=== PATIENT | male | born 1955 | race Caucasian/White ===

== ENCOUNTER 2019-01-16 14:15 | Observation (INO) ==
[2019-01-16] MEDS ORDERED: METHYLPREDNISOLONE SOD SUCC/PF 125 MG/2 ML VIAL IV ONE (14:39)
[2019-01-16] MEDS ORDERED: ALBUTEROL SULFATE/IPRATROPIUM 3 ML NEBU IH ONE (14:39)
[2019-01-16 15:01] LABS: Hematocrit 47.9 % (42.0-52.0); Hemoglobin 16.5 gm/dL (13.5-18.0); Mean Cell Volume 93.2 fl (78-100); Mean Corpuscular Hemoglobin 32.1 pg (27-31); Mean Corpuscular Hgb Conc 34.4 g/dl (32-36); Mean Platelet Volume 10.1 fl (8-11.3); Neutrophil # 3.8 K/mm3 (1.3-6.0); Neutrophil % 76.7 % (42-75.0); Platelet Count 158 K/mm3 (150-450); Red Blood Count 5.14 M/mm3 (4.7-6.0); Red Cell Distribution Width 12.4 % (11.5-14.0); White Blood Count 4.9 K/mm3 (4.0-10.5)
[2019-01-16 15:16] LABS: ALT 40 U/L (19-67); AST 46 U/L (0-48); Alkaline Phosphatase * 81 U/L (50-170); Anion Gap 14.4 mmol/L (6.8-13.8); BNP * 72 pg/mL (5-175); BUN/Creatinine Ratio 9.3 (9.0-21.6); Bilirubin, Total 0.5 mg/dL (0.0-1.1); Blood Urea Nitrogen 12 mg/dL (6-23); Ca. Corrected For Albumin 9.2 mg/dL (8.4-10.2); Calcium * 9.5 mg/dL (7.9-10.9); Carbon Dioxide 26.5 mmol/L (24-32.6); Chloride 95 mmol/L (97-106); Glucose * 366 mg/dL (70-110); Potassium 3.9 mmol/L (3.4-4.6); Sodium 132 mmol/L (132-142); Troponin I Less than 0.017 ng/mL (0.00-0.10)
[2019-01-16] MEDS ORDERED: NORMAL SALINE 1,000 ML IV ONE (15:44)
[2019-01-16] MEDS ORDERED: METHYLPREDNISOLONE SOD SUCC/PF 125 MG/2 ML VIAL ONE (15:46)
--- NOTE | 2019-01-16 16:05 | ERNOTE ---
Date of Service: 01/16/19 Time Seen by Provider: 01/16/19 14:33 Stated Complaint: coughing Presenting Symptoms:: cough Source: patient Exam Limitations: no limitations Immunizations: IMMUNIZATION HX Immunizations Up to Date Yes History of Influenza Vaccine No Hx Pneumococcal Vaccination Yes Allergies/Adverse Reactions: Allergies Penicillins Allergy (Mild, Verified 01/16/19 18:43) hives bee stings Allergy (Intermediate, Uncoded 01/16/19 14:28) swelling/redness cockroach Allergy (Mild, Uncoded 01/16/19 14:28) cough/sneezes horse serum Allergy (Mild, Uncoded 01/16/19 14:28) unknown was kid Home Medications: HOME MEDICATIONS aspirin 81 mg tablet,delayed release 81 mg PO DAILY 05/15/18 [Last Taken Unknown] citalopram 20 mg tablet 20 mg PO DAILY #90 tab 07/05/18 [Last Taken Unknown] cyclobenzaprine 10 mg tablet 10 mg PO TID PRN #270 tab 07/21/18 [Last Taken Unknown] Docusate Sodium 100 mg PO TID 01/16/19 [Last Taken Unknown] Gabapentin 300 mg PO TID #90 cap 01/17/19 [Last Taken Unknown] Glimepiride [Amaryl] 4 mg PO BID #60 tab 01/17/19 [Last Taken Unknown] Losartan Potassium [Cozaar] 25 mg PO DAILY #30 tab 01/17/19 [Last Taken Unknown] Metoprolol Succinate 25 mg PO DAILY 30 Days tab.er.24h 01/17/19 [Last Taken Unknown] Oseltamivir Phosphate [Tamiflu] 75 mg PO BID #8 cap 01/17/19 [Last Taken Unknown] Ranitidine HCl [Heartburn Relief] 150 mg PO BID #180 tab 01/17/19 [Last Taken Unknown] Ranitidine HCl [Zantac] 150 mg PO BID #30 tab 01/17/19 [Last Taken Unknown] metFORMIN HCL [Metformin HCl ER] 1,000 mg PO BID #360 tab 01/17/19 [Last Taken Unknown] traZODone HCL [Trazodone HCl] 2 tab PO HS #60 tab 01/17/19 [Last Taken Unknown] levalbuterol HFA 45 mcg/actuation aerosol inhaler 1 inh INHALATION Q3H PRN #15 g 03/21/19 [Last Taken Unknown] - Pain Score Pain Score #1 Pain Score: 7 - History of Present Ilness Narrative: The patient is a 63 year old male who presents for dyspnea and cough which has been present for 3-4 days with worsening symptoms yesterday. There are associated symptoms of fatigue, headache and body aches. The patient reports body aches, 7/10. There are no alleviating factors. There are aggravating factors of activity. Previous treatments have included: Tylenol without improvement. The past medical history includes: arthritis, COPD, DM, HTN, depression, HLD, sleep apnea and GERD. The social history is positive for current tobacco use. The patient has had no known ill contacts. Timing: getting worse Review of Systems - Review of Systems Constitutional: Present: fever, chills, fatigue EYE: Present: no symptoms reported ENT: Present: nose congestion, nasal drainage, sore throat. Absent: ear pain Respiratory: Present: shortness of breath, cough, wheezing Cardiology: Present: no symptoms reported. Absent: chest pain Gastrointestinal/Abdominal: Present: nausea. Absent: vomiting, diarrhea, abdominal pain Genitourinary: Present: no symptoms reported. Absent: dysuria, decreased urinary output Musculoskeletal: Present: no symptoms reported. Absent: back pain Skin: Present: no symptoms reported. Absent: rash Neurological: Present: headache. Absent: dizziness/light-headedness, weakness Endocrine: Present: no symptoms reported Hematologic/Lymphatic: Present: no symptoms reported Psych: Present: no symptoms reported All Other Systems: All systems neg except as marked Medical History (Last Reviewed 01/20/19 @ 14:13 by JORGE Barrientos) Essential hypertension (Chronic) Onset Date: Unknown Erectile dysfunction (Chronic) Onset Date: 11/15/17 Depression (Chronic) Onset Date: Unknown Type II diabetes mellitus (Chronic) Onset Date: Unknown COPD (chronic obstructive pulmonary disease) (Chronic) Onset Date: ~11/15/17 Arthritis (Chronic) Onset Date: Unknown GERD (gastroesophageal reflux disease) Hyperlipidemia Onset Date: Unknown Insomnia Onset Date: 11/15/17 Peripheral neuropathy Onset Date: Unknown Sleep apnea Onset Date: Unknown Spinal stenosis Onset Date: Unknown Type II diabetes mellitus Surgical History: Surgical History (Last Reviewed 01/20/19 @ 14:13 by JORGE Barrientos) H/O thumb surgery Tendon on thumb right repair 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 Smoking Status Current every day smoker Alcohol Use occasionally Drug Use marijuana (Last Updated 08/29/18 @ 12:40 by Che Alas DO) No Social History Section defined Physical Exam - Physical Exam General Appearance: Present: wd/wn, alert, moderate distress Head Exam: Present: normal inspection Eye Exam: Normal inspection: bilateral, PERRL: bilateral Ears, Nose, Throat: Present: normal ENT inspection, pharyngeal erythema Neck: Present: normal inspection, nontender Respiratory: Present: chest nontender, accessory muscle use, decreased breath sounds, wheezing - diffuse expiratory Cardiovascular/Chest: Present: no murmur, tachycardia Gastrointestinal/Abdominal: Present: normal bowel sounds, nontender, nondistended, soft, no organomegaly Neurological Exam: Present: alert, oriented, normal mood/affect, no motor/sensory deficits Skin Exam: Present: normal color, warm/dry Progress - Date and Time Seen: Date and Time: 01/16/19 16:00 Discussed case with and accepted for admission due to COPD exacerbation as well as influenza A positive. - Results and Orders Patient's Lab Results:: I have reviewed the patient's lab results. - Vital Signs Patient's Vital Signs:: I have reviewed the patient's vital signs. Vital Signs: Vital Signs 01/16/19 14:24 01/16/19 15:04 01/16/19 15:43 Temperature 36.4 C Pulse Rate 127 H 129 H 128 H Respiratory Rate 22 H 32 H 25 H Blood Pressure 143/89 107/60 O2 Sat by Pulse Oximetry 94 91 L 93 01/16/19 15:52 Temperature Pulse Rate 126 H Respiratory Rate 28 H Blood Pressure O2 Sat by Pulse Oximetry - EKG EKG #1 EKG: NSR - tachycardia EKG read: Reviewed by me - X-Ray X-Ray #1 X-Ray: chest Interpretation: Reviewed by me X-ray Comments: X-RAY REPORT ~[id number] RAD/Chest PA & Lateral *~ Exam Date: 01/16/2019 14:37 Ordering Physician: Essence PATEL HISTORY: Chest Pain. Additional history from technologist: Chest pain, coughing, sick off/ on for a month, worsening last couple days. Positive for Influenza A. TECHNIQUE: PA and lateral views of the chest were obtained. 4 images. COMPARISONS: None Available FINDINGS: Chest PA Lateral * Hyperinflated lung volumes, with hyperlucent appearance of the lungs noted. There is slightly decreased left lung volume relative to the right. No consolidation or mass. No significant vascular congestion suggested. No pneumothorax or pleural fluid collections. Cardiac silhouette within normal limits. Mild tortuosity of the thoracic aorta noted, with overlying atherosclerotic vascular calcifications. There is focal prominence of the left hilum. Could be artifactual but possible perihilar lesion/mass or lymphadenopathy should be considered. Trachea is in normal position. Bones show degenerative changes of the spine. IMPRESSION: 1. Findings compatible with acute or chronic bronchitis versus reactive airways disease. Also consider COPD/emphysema, if the patient has history of smoking or other risk factors. 2. Questionable finding at the left hilum as discussed above, with associated slight left lung volume loss. Recommend follow-up by chest CT to rule out a potential perihilar lesion or lymphadenopathy, which can be performed on a nonemergent basis unless otherwise clinically indicated. Ordering provider JORGE Barrientos was informed regarding the above results by telephone on 01/16/2019 3:50 PM. Electronically signed by Justin Monroe M.D.. - Progress/Reassessment Chief Complaint: Cough Departure Clinical Impression: Influenza A, COPD with exacerbation - Departure Disposition: Still a patient Condition: Stable
[2019-01-16] MEDS ORDERED: AZITHROMYCIN 250 MG TABLET PO ONE (16:06)
[2019-01-16] MEDS ORDERED: OSELTAMIVIR PHOSPHATE 75 MG CAPSULE PO ONE (16:06)
[2019-01-16] MEDS ORDERED: cefTRIAXone SODIUM 1,000 MG/100 ML BAG IV ONE (16:06)
[2019-01-16] MEDS ORDERED: ACETAMINOPHEN 500 MG TABLET PO ONE (16:21)
[2019-01-16] MEDS: NORMAL SALINE 1,000 ML IV PRN ×2 (17:20→18:27)
--- NOTE | 2019-01-16 17:44 | HP ---
Chief Complaint - Chief Complaint Date of Service: 01/16/19 Time of Service: 04:00 Chief Complaint: Productive cough, shortness of breath, malaise History of Present Illness: 63-year-old male with a past medical history of COPD, depression, hypertension, hyperlipidemia, sleep apnea, diabetes type 2, spinal stenosis presents from home with complaints of a one-week history of productive cough with clear sputum, shortness of breath and malaise. Per at bedside symptoms began a week ago and has been worsening. He does not have a PCP at this time and is out of his blood pressure medication so has not been taking it. In the emergency department he is found to be positive for influenza A. Chest x-ray shows findings consistent with bronchitis versus COPD. There is a left hilar abnormality that warrants nonemergent CT scan for further evaluation. Medical History (Last Reviewed 01/16/19 @ 14:28 by Gretta Godinez RN) GERD (gastroesophageal reflux disease) (Chronic) Type II diabetes mellitus (Chronic) Spinal stenosis (Chronic) Onset Date: Unknown Sleep apnea (Chronic) Onset Date: Unknown Peripheral neuropathy (Chronic) Onset Date: Unknown Insomnia (Chronic) Onset Date: 11/15/17 Hyperlipidemia (Chronic) Onset Date: Unknown Essential hypertension (Chronic) Onset Date: Unknown Erectile dysfunction (Chronic) Onset Date: 11/15/17 Depression (Chronic) Onset Date: Unknown Type II diabetes mellitus (Chronic) Onset Date: Unknown COPD (chronic obstructive pulmonary disease) (Chronic) Onset Date: ~11/15/17 Arthritis (Chronic) Onset Date: Unknown Surgical History: Surgical History (Last Reviewed 01/16/19 @ 14:28 by Gretta Godinez RN) History of back surgery Onset Date: Unknown History of carpal tunnel release Onset Date: 2001 History of neck surgery Onset Date: 2013 Family History: Family History (Last Reviewed 01/16/19 @ 14:28 by Gretta Godinez RN) Mother , age 70 COPD (chronic obstructive pulmonary disease) Myocardial infarction Father , age 83 CVA (cerebral vascular accident) COPD (chronic obstructive pulmonary disease) Social History: Preferred Language Faroese Do you have any holiness or No cultural preference? Smoking Status Current every day smoker Alcohol Use occasionally Drug Use marijuana (Last Updated 08/29/18 @ 12:40 by Che Alas DO) No Social History Section defined Review Of Systems (GEN) - Review of Systems Generalized/Overall Review: Present: Malaise. Absent: Fever Respiratory: Present: Cough, Shortness of Breath, Orthopnea Cardiac: Absent: Chest Pain Abdominal: Absent: Abdominal Pain Musculoskeletal: Present: Muscle Pain - Generalized body Misc: All systems neg except as marked Immunizations: IMMUNIZATION HX Immunizations Up to Date Yes History of Influenza Vaccine No Hx Pneumococcal Vaccination Yes Allergies/Adverse Reactions: Allergies Allergy/AdvReac Type Severity Reaction Status Date / Time Penicillins Allergy Mild hives Verified 01/16/19 14:28 bee stings Allergy Intermediate swelling/re Uncoded 01/16/19 14:28 dness cockroach Allergy Mild cough/sneez Uncoded 01/16/19 14:28 es horse serum Allergy Mild unknown Uncoded 01/16/19 14:28 was kid Home Medications: HOME MEDICATIONS aspirin 81 mg tablet,delayed release 81 mg PO DAILY 05/15/18 [Last Taken Unknown] docusate sodium 100 mg tablet See Rx Instructions PO DAILY 05/15/18 [Last Taken Unknown] trazodone 100 mg tablet See Rx Instructions PO .COMPLEX 05/15/18 [Last Taken Unknown] citalopram 20 mg tablet 20 mg PO DAILY #90 tab 07/05/18 [Last Taken Unknown] metformin ER 500 mg tablet,extended release 24 hr 1,000 mg PO BID #360 tab 07/05/18 [Last Taken Unknown] albuterol sulfate HFA 90 mcg/actuation aerosol inhaler See Rx Instructions .ROUTE .COMPLEX PRN #18 g 07/21/18 [Last Taken Unknown] cyclobenzaprine 10 mg tablet 10 mg PO TID PRN #270 tab 07/21/18 [Last Taken Unknown] gabapentin 300 mg capsule 300 mg PO TID #270 cap 07/21/18 [Last Taken Unknown] ranitidine 150 mg tablet 150 mg PO BID #180 tab 07/21/18 [Last Taken Unknown] Exam - Exam Vital Signs: Vital Signs - Last Taken Temp 37.8 C 01/16/19 17:00 Pulse 116 H 01/16/19 17:00 Resp 22 H 01/16/19 17:00 BP 171/79 H 01/16/19 17:00 Pulse Ox 96 01/16/19 17:00 Constitutional: Present: Alert, Cooperative, Well developed, Well nourished, No distress ENT Exam: Present: hearing grossly normal, moist mucous membranes Neck: Present: supple. Absent: lymphadenopathy (R), lymphadenopathy (L) Back Exam: Absent: muscle spasm Respiratory: Present: lungs clear, No wheezing. Absent: crackles, rhonchi Cardiovascular/Chest: Present: normal peripheral pulses, regular rate, rhythm, no edema, no murmur Peripheral Pulses: dorsalis-pedis (R): 2+, dorsalis-pedis (L): 2+ Abdomen: Present: Normal bowel sounds, soft, nontender, obese Extremity: Present: normal range of motion, no pedal edema Skin Exam: Present: normal color, warm/dry Neurologic: Present: normal mood/affect Appearance: Present: appropriate appearance Eye contact: Present: cooperative Thoughts: Present: normal thought pattern Diagnostic Studies: Abnormal Lab Results 01/16/19 01/16/19 01/16/19 Range/Units 14:30 14:52 14:52 MCH 32.1 H (27-31) pg Neutrophils % 76.7 H (42-75.0) % Lymphocytes % 13.2 L (20-51) % Lymphocytes # 0.65 L (1.5-3.5) k/mm3 pO2 (83.0-108.0) mmHg Total CO2 (19.0-24.0) mmol/L ABG O2 Sat (Measured) (94.0-98.0) % Chloride 95 L (97-106) mmol/L Anion Gap 14.4 H (6.8-13.8) mmol/L Random Glucose 366 H (70-110) mg/dL Lactic Acid, Venous (0.4-2.0) mmol/L Influenza Type A Ag Positive H (NEGATIVE) 01/16/19 01/16/19 Range/Units 14:52 15:10 MCH (27-31) pg Neutrophils % (42-75.0) % Lymphocytes % (20-51) % Lymphocytes # (1.5-3.5) k/mm3 pO2 58.2 L (83.0-108.0) mmHg Total CO2 25.1 H (19.0-24.0) mmol/L ABG O2 Sat (Measured) 89.8 L (94.0-98.0) % Chloride (97-106) mmol/L Anion Gap (6.8-13.8) mmol/L Random Glucose (70-110) mg/dL Lactic Acid, Venous 2.2 H* (0.4-2.0) mmol/L Influenza Type A Ag (NEGATIVE) Laboratory Results WBC 4.9 K/mm3 (4.0-10.5) 01/16/19 14:52 RBC 5.14 M/mm3 (4.7-6.0) 01/16/19 14:52 Hgb 16.5 gm/dL (13.5-18.0) 01/16/19 14:52 Hct 47.9 % (42.0-52.0) 01/16/19 14:52 MCV 93.2 fl (78-100) 01/16/19 14:52 MCH 32.1 pg (27-31) H 01/16/19 14:52 MCHC 34.4 g/dl (32-36) 01/16/19 14:52 RDW 12.4 % (11.5-14.0) 01/16/19 14:52 Plt Count 158 K/mm3 (150-450) 01/16/19 14:52 MPV 10.1 fl (8-11.3) 01/16/19 14:52 Immature Gran % (Auto) 0.20 % (0.001-0.429) 01/16/19 14:52 Immature Gran # (Auto) 0.01 K/mm3 (0.000-0.0310) 01/16/19 14:52 Neutrophils % 76.7 % (42-75.0) H 01/16/19 14:52 Lymphocytes % 13.2 % (20-51) L 01/16/19 14:52 Monocytes % 8.9 % (0.0-9) 01/16/19 14:52 Eosinophils % 0.4 % (0.0-3.0) 01/16/19 14:52 Basophils % 0.6 % (0.0-1.0) 01/16/19 14:52 Nucleated RBC % 0.0 k/mm3 (0-1) 01/16/19 14:52 Neutrophils # 3.8 K/mm3 (1.3-6.0) 01/16/19 14:52 Lymphocytes # 0.65 k/mm3 (1.5-3.5) L 01/16/19 14:52 Monocytes # 0.4 k/mm3 (0.0-1.0) 01/16/19 14:52 Eosinophils # 0.0 k/mm3 (0.0-0.7) 01/16/19 14:52 Absolute Basophils 0.0 k/mm3 (0.0-0.1) 01/16/19 14:52 pCO2 41.2 mmHg (35.0-48.0) 01/16/19 15:10 pO2 58.2 mmHg (83.0-108.0) L 01/16/19 15:10 HCO3 23.9 mmol/L (21.0-28.0) 01/16/19 15:10 Total CO2 25.1 mmol/L (19.0-24.0) H 01/16/19 15:10 Base Excess -1.2 mmol/L (-2.0-3.0) 01/16/19 15:10 ABG pH 7.38 (7.35-7.45) 01/16/19 15:10 ABG O2 Sat (Measured) 89.8 % (94.0-98.0) L 01/16/19 15:10 Sodium 132 mmol/L (132-142) 01/16/19 14:52 Plasma Sodium 136 mmol/L (130-142) 01/16/19 14:52 Potassium 3.9 mmol/L (3.4-4.6) 01/16/19 14:52 Chloride 95 mmol/L (97-106) L 01/16/19 14:52 Carbon Dioxide 26.5 mmol/L (24-32.6) 01/16/19 14:52 Anion Gap 14.4 mmol/L (6.8-13.8) H 01/16/19 14:52 BUN 12 mg/dL (6-23) D 01/16/19 14:52 Creatinine 1.29 mg/dL (0.4-1.4) 01/16/19 14:52 Est GFR (Non-Af Amer) 60 mL/min (60-130) 01/16/19 14:52 BUN/Creatinine Ratio 9.3 (9.0-21.6) 01/16/19 14:52 Random Glucose 366 mg/dL (70-110) H 01/16/19 14:52 Lactic Acid, Venous 2.2 mmol/L (0.4-2.0) H* 01/16/19 14:52 Calcium 9.5 mg/dL (7.9-10.9) 01/16/19 14:52 Calcium Adj for Albumin 9.2 mg/dL (8.4-10.2) 01/16/19 14:52 Total Bilirubin 0.5 mg/dL (0.0-1.1) 01/16/19 14:52 AST 46 U/L (0-48) 01/16/19 14:52 ALT 40 U/L (19-67) 01/16/19 14:52 Alkaline Phosphatase 81 U/L (50-170) 01/16/19 14:52 Troponin I Less than 0.017 ng/mL (0.00-0.10) 01/16/19 14:52 B-Natriuretic Peptide 72 pg/mL (5-175) 01/16/19 14:52 Total Protein 8.0 gm/dL (6.2-8.2) 01/16/19 14:52 Albumin 4.0 gm/dl (3.4-5.0) 01/16/19 14:52 Influenza Type A Ag Positive (NEGATIVE) H 01/16/19 14:30 Influenza Type B Ag Negative (NEGATIVE) 01/16/19 14:30 Group A Strep Rapid Negative (NEGATIVE) 01/16/19 14:30 Assessment/Plan - Narrative Narrative: 63-year-old male with a past medical history of COPD, depression, hypertension, hyperlipidemia, sleep apnea, diabetes type 2, spinal stenosis presents from home with complaints of a one-week history of productive cough with clear sputum, shortness of breath and malaise. Per at bedside symptoms began a week ago and has been worsening. He does not have a PCP at this time and is out of his blood pressure medication so has not been taking it. In the emergency department he is found to be positive for influenza A. Chest x-ray shows findings consistent with bronchitis versus COPD. There is a left hilar abnormality that warrants nonemergent CT scan for further evaluation. - Assessment/Plan (1) Influenza A Assessment: Continue with Tamiflu 75 mg twice daily for 5 days. Problem: Acute (2) Essential hypertension Assessment: Resume home blood pressure medications. Problem: Chronic (3) Type II diabetes mellitus Assessment: Resume home meds. 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 Problem: Chronic (5) Left pulmonary lesion Assessment: Chest x-ray shows left perihilar lesion. CT scan is warranted for further evaluation but can be done as an outpatient. Problem: Acute
[2019-01-16] MEDS ORDERED: ADENOSINE 3 MG/ML DISP.SYRIN IV ONE (20:51)
[2019-01-16] MEDS ORDERED: traZODone HCL 50 MG TABLET PO SCH (21:00)
[2019-01-17] MEDS: FAMOTIDINE 20 MG TABLET PO SCH ×2 (00:02→08:37)
[2019-01-17] MEDS: OSELTAMIVIR PHOSPHATE 75 MG CAPSULE PO SCH ×2 (00:03→08:38)
[2019-01-17] MEDS: guaiFENesin/DEXTROMETHORPHAN 118 ML BTL PO PRN ×3 (00:03→08:38)
[2019-01-17] MEDS: NORMAL SALINE 1,000 ML IV PRN (03:55)
[2019-01-17] MEDS ORDERED: ACETAMINOPHEN 500 MG TABLET PO PRN (04:46)
[2019-01-17 05:57] LABS: Albumin * 3.5 gm/dl (3.4-5.0); Anion Gap 16.6 mmol/L (6.8-13.8); BUN/Creatinine Ratio 13.1 (9.0-21.6); Bilirubin, Total 0.4 mg/dL (0.0-1.1); Ca. Corrected For Albumin 8.4 mg/dL (8.4-10.2); Calcium * 8.3 mg/dL (7.9-10.9); Carbon Dioxide 23.4 mmol/L (24-32.6); Total Protein 7.3 gm/dL (6.2-8.2)
[2019-01-17] MEDS ORDERED: LOSARTAN POTASSIUM 50 MG TABLET PO SCH (09:00)
[2019-01-17] MEDS ORDERED: METOPROLOL SUCCINATE 25 MG TABLET.SA PO SCH (10:00)
[2019-01-17] MEDS ORDERED: ALBUTEROL SULFATE/IPRATROPIUM 3 ML NEBU IH PRN (10:43)
--- NOTE | 2019-01-17 11:27 | DS ---
(1) Influenza A Diagnosis(s): Continue with Tamiflu, today is day 2 of 5. Problem: Acute (2) Essential hypertension Diagnosis(s): Stable continue home medications. Problem: Chronic (3) Type II diabetes mellitus Problem: Chronic Qualifiers: Diabetes mellitus continuous churn buttermaker insulin use: without senior living use (4) COPD (chronic obstructive pulmonary disease) Diagnosis(s): Stable no exacerbation. Problem: Chronic (5) Left pulmonary lesion Diagnosis(s): Follow-up as an outpatient with a CT scan. Problem: Acute (6) SVT (supraventricular tachycardia) Diagnosis(s): Resolved. Start metoprolol succinate 25 mg daily. Problem: Acute Description of Stay: 63-year-old male with a past medical history of COPD, depression, hypertension, hyperlipidemia, sleep apnea, diabetes type 2, spinal stenosis presents from home with complaints of a one-week history of productive cough with clear sputum, shortness of breath and malaise. Per at bedside symptoms began a week ago and has been worsening. He does not have a PCP at this time and is out of his blood pressure medication so has not been taking it. In the emergency department he is found to be positive for influenza A. Chest x-ray shows findings consistent with bronchitis versus COPD. There is a left hilar abnormality that warrants nonemergent CT scan for further evaluation. He did have 2 episodes of SVT overnight. The first 1 resolved after he coughed, the second episode required 1 dose of adenosine 6 mg. He has had no further episodes. I have started him on metoprolol succinate 25 mg daily. He is stable for discharge home. He should establish with a primary care physician and have the CT scan monitor done as an outpatient. Procedures Performed: none Results and Findings: Lab Pending Results 01/16/19 08:43: Troponin I Less than 0.017 01/16/19 14:30: Influenza Type A Ag Positive H, Influenza Type B Ag Negative 01/16/19 14:30: Group A Strep Rapid Negative 01/16/19 14:52: WBC 4.9, RBC 5.14, Hgb 16.5, Hct 47.9, MCV 93.2, MCH 32.1 H, MCHC 34.4, RDW 12.4, Plt Count 158, MPV 10.1, Immature Gran % (Auto) 0.20, Immature Gran # (Auto) 0.01, Neutrophils % 76.7 H, Lymphocytes % 13.2 L, Monocytes % 8.9, Eosinophils % 0.4, Basophils % 0.6, Nucleated RBC % 0.0, Neutrophils # 3.8, Lymphocytes # 0.65 L, Monocytes # 0.4, Eosinophils # 0.0, Absolute Basophils 0.0 01/16/19 14:52: Sodium 132, Plasma Sodium 136, Potassium 3.9, Chloride 95 L, Carbon Dioxide 26.5, Anion Gap 14.4 H, BUN 12 D, Creatinine 1.29, Est GFR (Non- Af Amer) 60, BUN/Creatinine Ratio 9.3, Random Glucose 366 H, Calcium 9.5, Calcium Adj for Albumin 9.2, Total Bilirubin 0.5, AST 46, ALT 40, Alkaline Phosphatase 81, Troponin I Less than 0.017, B-Natriuretic Peptide 72, Total Protein 8.0, Albumin 4.0 01/16/19 14:52: Lactic Acid, Venous 2.2 H* 01/16/19 15:10: pCO2 41.2, pO2 58.2 L, HCO3 23.9, Total CO2 25.1 H, Base Excess -1.2, ABG pH 7.38, ABG O2 Sat (Measured) 89.8 L 01/16/19 18:22: Lactic Acid, Venous 2.1 H 01/17/19 05:41: Sodium 132, Plasma Sodium 137, Potassium 5.0 H D, Chloride 97, Carbon Dioxide 23.4 L, Anion Gap 16.6 H, BUN 16, Creatinine 1.22, Est GFR (Non- Af Amer) 64, BUN/Creatinine Ratio 13.1, Random Glucose 384 H, Calcium 8.3, Calcium Adj for Albumin 8.4, Total Bilirubin 0.4, AST 63 H, ALT 41, Alkaline Phosphatase 74, Total Protein 7.3, Albumin 3.5 01/17/19 05:41: Lactic Acid, Venous 2.0 Disposition: Home self-care Condition: Stable Discharge Activity: Activity as tolerated Discharge Diet: General/regular food Referrals: Che Alas DO [Primary Care Provider] - Problem Oriented Discharge Instructions to Patient/Family: Influenza, Adult, [id number], Chronic Obstructive Pulmonary Disease, [id number] Additional Patient Instructions (free text): -Please make TCM appointment unless halfway discharge. Thank you! Cony @ [phone]. Follow up with Nato on 01-30-19 at 2:15pm. Prescriptions (Any new or edited meds): Gabapentin 300 mg PO TID #90 cap Glimepiride [Amaryl] 4 mg PO BID #60 tablet Levalbuterol Tartrate [Levalbuterol Tartrate Hfa] 15 gm IH Q3H PRN #1 hfa.aer.ad PRN Reason: Shortness Of Breath/Wheezing Losartan Potassium [Cozaar] 25 mg PO DAILY #30 tablet metFORMIN HCL [Metformin HCl ER] 1,000 mg PO BID #360 tab Oseltamivir Phosphate [Tamiflu] 75 mg PO BID #8 cap Ranitidine HCl [Zantac] 150 mg PO BID #30 tablet Ranitidine HCl [Heartburn Relief] 150 mg PO BID #180 tab traZODone HCL [Trazodone HCl] 2 tab PO HS #60 tablet Complete Home Medications List: Complete Home Medication List: aspirin 81 mg tablet,delayed release 81 mg PO DAILY 05/15/18 citalopram 20 mg tablet 20 mg PO DAILY #90 tab 07/05/18 cyclobenzaprine 10 mg tablet 10 mg PO TID PRN #270 tab 07/21/18 Docusate Sodium 100 mg PO TID 01/16/19 Gabapentin 300 mg PO TID #90 cap 01/17/19 Glimepiride [Amaryl] 4 mg PO BID #60 tablet 01/17/19 Levalbuterol Tartrate [Levalbuterol Tartrate Hfa] 15 gm IH Q3H PRN #1 hfa.aer.ad 01/17/19 Losartan Potassium [Cozaar] 25 mg PO DAILY #30 tablet 01/17/19 Oseltamivir Phosphate [Tamiflu] 75 mg PO BID #8 cap 01/17/19 Ranitidine HCl [Heartburn Relief] 150 mg PO BID #180 tab 01/17/19 Ranitidine HCl [Zantac] 150 mg PO BID #30 tablet 01/17/19 metFORMIN HCL [Metformin HCl ER] 1,000 mg PO BID #360 tab 01/17/19 traZODone HCL [Trazodone HCl] 2 tab PO HS #60 tablet 01/17/19
[2019-01-17 15:31] VITALS: BP 127/70
== END 2019-01-17 15:50 | disposition home or self-care (01) ==
LOC: MS 14:15 → ER 14:15 → MS 16:56
PROVIDERS: ADMIT Internal Medicine; ATTEND Internal Medicine
CPT/HCPCS: 36415; 36600; 71020; 71046; 80053; 82803; 83519; 83605; 83880; 84484; 85025; 87040; 87081; 87400; 87430; 87449; 90686; 93005; 94640; 94664; 96361; 96365; 96375; 99285; G0008; G0378

== ENCOUNTER 2019-04-20 18:35 | Observation (INO) ==
[2019-04-20] MEDS ORDERED: ALBUTEROL SULFATE/IPRATROPIUM 3 ML NEBU IH ONE (18:54)
[2019-04-20] MEDS ORDERED: METHYLPREDNISOLONE SOD SUCC/PF 125 MG/2 ML VIAL IV ONE (18:56)
[2019-04-20] MEDS ORDERED: NORMAL SALINE 1,000 ML IV ONE ×2 (19:00→20:09)
--- NOTE | 2019-04-20 19:03 | ERNOTE ---
Dyspnea - Date Date of Service: 04/20/19 - General Presenting Symptoms: shortness of breath Time Seen by Provider: 04/20/19 18:51 Source: patient Exam Limitations: clinical condition - Immun/Allergies/Home Medications Immunizations: IMMUNIZATION HX Immunizations Up to Date Yes History of Influenza Vaccine No Hx Pneumococcal Vaccination Yes Allergies/Adverse Reactions: Allergies Penicillins Allergy (Mild, Verified 04/19/19 12:10) hives bee stings Allergy (Intermediate, Uncoded 01/16/19 14:28) swelling/redness cockroach Allergy (Mild, Uncoded 01/16/19 14:28) cough/sneezes horse serum Allergy (Mild, Uncoded 01/16/19 14:28) unknown was kid Home Medications: HOME MEDICATIONS aspirin 81 mg tablet,delayed release 81 mg PO DAILY 05/15/18 [Last Taken Unknown] citalopram 20 mg tablet 20 mg PO DAILY #90 tab 07/05/18 [Last Taken Unknown] Docusate Sodium 100 mg PO TID 01/16/19 [Last Taken Unknown] Losartan Potassium [Cozaar] 25 mg PO DAILY #30 tab 01/17/19 [Last Taken Unknown] Ranitidine HCl [Zantac] 150 mg PO BID #30 tab 01/17/19 [Last Taken Unknown] metFORMIN HCL [Metformin HCl ER] 1,000 mg PO BID #360 tab 01/17/19 [Last Taken Unknown] glimepiride 4 mg tablet 4 mg PO BID #60 tab 02/13/19 [Last Taken Unknown] trazodone 100 mg tablet 200 mg PO HS #60 tab 02/13/19 [Last Taken Unknown] gabapentin 300 mg capsule 300 mg PO TID #90 cap 02/21/19 [Last Taken Unknown] albuterol sulfate 2.5 mg/3 mL (0.083 %) solution for nebulization 2.5 mg INHALATION QID PRN #90 ml 04/19/19 [Last Taken Unknown] azithromycin 250 mg tablet See Rx Instructions PO .COMPLEX #6 tab 04/19/19 [Last Taken Unknown] compressor, for nebulizer See Dose Instructions .ROUTE .MEDSUPPLY #1 ea 04/19/19 [Last Taken Unknown] ibuprofen 800 mg tablet 800 mg PO QID 04/19/19 [Last Taken Unknown] nebulizer accessories misc See Dose Instructions .ROUTE .MEDSUPPLY #1 ea 04/19/19 [Last Taken Unknown] - Pain Score Pain Score #1 Pain Score: 0 - History of Present Illness Narrative: The patient is a 63 year old male who presents for dyspnea which has been present for 6 days with worsening symptoms since yesterday. There are associated symptoms of chills, sweats, productive cough and fatigue. The patient denies pain. There are no alleviating factors. There are aggravating factors of activity. Previous treatments have included: azithromycin and albuterol without improvement. The past medical history includes: arthritis, COPD, DM, HTN, HLD, sleep apnea and GERD. The social history is positive for current tobacco use. The patient has had no ill contacts. reports that patient was seen at [facility] yesterday and started on ZPak without improvement. Review of Systems - Review of Systems Constitutional: Present: chills, fatigue. Absent: fever EYE: Present: no symptoms reported ENT: Present: nasal drainage. Absent: ear pain, sore throat Respiratory: Present: shortness of breath, cough, wheezing Cardiology: Present: no symptoms reported. Absent: chest pain Gastrointestinal/Abdominal: Present: nausea. Absent: vomiting, diarrhea, abdominal pain Genitourinary: Present: no symptoms reported. Absent: dysuria Musculoskeletal: Present: no symptoms reported Skin: Present: no symptoms reported. Absent: rash Neurological: Present: headache All Other Systems: All systems neg except as marked Medical History (Updated 04/20/19 @ 21:04 by JORGE Barrientos) Essential hypertension (Chronic) Onset Date: Unknown Erectile dysfunction (Chronic) Onset Date: 11/15/17 Depression (Chronic) Onset Date: Unknown Type II diabetes mellitus (Chronic) Onset Date: Unknown COPD (chronic obstructive pulmonary disease) (Chronic) Onset Date: ~11/15/17 Arthritis (Chronic) Onset Date: Unknown GERD (gastroesophageal reflux disease) Hyperlipidemia Onset Date: Unknown Insomnia Onset Date: 11/15/17 Peripheral neuropathy Onset Date: Unknown Sleep apnea Onset Date: Unknown Spinal stenosis Onset Date: Unknown Type II diabetes mellitus Surgical History: Surgical History (Updated 01/17/19 @ 15:27 by Louisa Dutton MD) H/O thumb surgery Tendon on thumb right repair 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 Smoking Status Current every day smoker Alcohol Use occasionally Drug Use none (Last Updated 04/19/19 @ 13:21 by Marielle Beltran DNP) No Social History Section defined Physical Exam - Physical Exam General Appearance: Present: wd/wn, moderate distress Head Exam: Present: normal inspection Eye Exam: Normal inspection: bilateral Neck: Present: normal inspection Respiratory: Present: respiratory distress, accessory muscle use, decreased breath sounds, wheezing - diffuse expiratory wheezing Cardiovascular/Chest: Present: no murmur, tachycardia Gastrointestinal/Abdominal: Present: normal bowel sounds, nontender, nondistended, soft, no organomegaly Neurological Exam: Present: alert, oriented, normal mood/affect Skin Exam: Present: normal color, warm/dry Progress - Date and Time Seen: Date and Time: 04/20/19 21:00 Case discussed with . Patient was started on azithromycin yesterday and took 250mg dose today. Will initiate treatment with Rocephin 1gm IV and also administer additional 250mg dose of azithromycin to total 500mg dose for today. Patient respiration improved, remains diminished throughout with diffuse expiratory wheezing. Patient joking and visiting with family more and appears more comfortable. - Results and Orders Patient's Lab Results:: I have reviewed the patient's lab results. - Vital Signs Patient's Vital Signs:: I have reviewed the patient's vital signs. Vital Signs: Vital Signs 04/20/19 18:44 Temperature 37.6 C Pulse Rate 124 H Respiratory Rate 30 H Blood Pressure 142/63 O2 Sat by Pulse Oximetry 88 L - EKG EKG #1 EKG: NSR - tachycardia, rate 121 EKG read: Reviewed by me - X-Ray X-Ray #1 X-Ray: chest Interpretation: Reviewed by me X-ray Comments: Haziness to left lower lung consistent with pneumonia. Reviewed with . 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
[2019-04-20 19:24] LABS: Hematocrit 45.3 % (42.0-52.0); Hemoglobin 15.5 gm/dL (13.5-18.0); Mean Cell Volume 94.4 fl (78-100); Mean Corpuscular Hemoglobin 32.3 pg (27-31); Mean Corpuscular Hgb Conc 34.2 g/dl (32-36); Mean Platelet Volume 10.5 fl (8-11.3); Neutrophil # 8.9 K/mm3 (1.3-6.0); Neutrophil % 76.1 % (42-75.0); Platelet Count 231 K/mm3 (150-450); White Blood Count 11.7 K/mm3 (4.0-10.5)
[2019-04-20 19:42] LABS: ALT 22 U/L (19-67); AST 22 U/L (0-48); Albumin * 3.2 gm/dl (3.4-5.0); Alkaline Phosphatase * 95 U/L (50-170); Bilirubin, Total 0.8 mg/dL (0.0-1.1); Blood Urea Nitrogen 10 mg/dL (6-23); Calcium * 9.7 mg/dL (7.9-10.9); Carbon Dioxide 25.9 mmol/L (24-32.6); Chloride 96 mmol/L (97-106); Glucose * 262 mg/dL (70-110); Potassium 3.9 mmol/L (3.4-4.6); Sodium 133 mmol/L (132-142); Total Protein 8.1 gm/dL (6.2-8.2)
[2019-04-20 19:45] LABS: Troponin I Less than 0.017 ng/mL (0.00-0.10)
[2019-04-20] MEDS ORDERED: AZITHROMYCIN 250 MG TABLET PO ONE (20:12)
[2019-04-20] MEDS ORDERED: cefTRIAXone SODIUM 1,000 MG/100 ML BAG IV ONE (20:12)
[2019-04-20] MEDS ORDERED: ACETAMINOPHEN 500 MG TABLET PO ONE (20:59)
--- NOTE | 2019-04-20 22:26 | HP ---
Chief Complaint - Chief Complaint Date of Service: 04/20/19 Time of Service: 22:26 Chief Complaint: Productive cough, shortness of breath History of Present Illness: 63-year-old male with history of COPD presented to the hospital tonight after 6 days of worsening productive cough and shortness of breath. Initial vital signs showed him to be 88% on room air which improved to 92% with 2 L nasal cannula. Patient does not normally use oxygen but does have at home. He was also tachypneic in the 30s and tachycardic at 124. He was afebrile. Patient was seen in the walk-in clinic yesterday and started on azithromycin but only got 1 dose. Patient states he progressively worsened tonight which is why came to the hospital. In the ER chest x-ray showed possible pneumonia with likely pulmonary edema as well as mild hyperinflation, cannot rule out pneumonia and left lower lobe. Patient has significant smoking history with history of COPD. He was given a dose of Rocephin and azithromycin as well as 125 mg of IV Solu-Medrol. He received a DuoNeb treatment. He was moved to the floor and placed as an inpatient, I change this to outpatient as patient clinically looks very well and probably will not be here more than 24 hours. Medical History (Updated 04/20/19 @ 22:26 by Dipesh Gonzales DO) Essential hypertension (Chronic) Onset Date: Unknown Erectile dysfunction (Chronic) Onset Date: 11/15/17 Depression (Chronic) Onset Date: Unknown Type II diabetes mellitus (Chronic) Onset Date: Unknown COPD (chronic obstructive pulmonary disease) (Chronic) Onset Date: ~11/15/17 Arthritis (Chronic) Onset Date: Unknown GERD (gastroesophageal reflux disease) Hyperlipidemia Onset Date: Unknown Insomnia Onset Date: 11/15/17 Peripheral neuropathy Onset Date: Unknown Sleep apnea Onset Date: Unknown Spinal stenosis Onset Date: Unknown Type II diabetes mellitus Surgical History: Surgical History (Updated 04/20/19 @ 22:26 by Dipesh Gonzales DO) H/O thumb surgery Tendon on thumb right repair 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 Smoking Status Current every day smoker Have you smoked in the past 12 No months Do you dip or chew tobacco No Alcohol Use occasionally Drug Use none (Last Updated 04/19/19 @ 13:21 by Marielle Beltran DNP) No Social History Section defined Review Of Systems (GEN) - Review of Systems Generalized/Overall Review: Present: Fatigue. Absent: Chills, Fever EENTM: Present: No Symptoms Reported Respiratory: Present: Cough - Productive, Shortness of Breath. Absent: Stridor, Wheezing Cardiac: Absent: Chest Pain, Edema, Palpitations Abdominal: Absent: Nausea, Vomiting Genitourinary: Present: No Symptoms Reported Musculoskeletal: Present: No Symptoms Reported Neurological: Present: No Symptoms Reported Skin: Present: No Symptoms Reported Immunizations: IMMUNIZATION HX Immunizations Up to Date Yes History of Influenza Vaccine No Hx Pneumococcal Vaccination Yes Allergies/Adverse Reactions: Allergies Allergy/AdvReac Type Severity Reaction Status Date / Time Penicillins Allergy Mild hives Verified 04/19/19 12:10 bee stings Allergy Intermediate swelling/re Uncoded 01/16/19 14:28 dness cockroach Allergy Mild cough/sneez Uncoded 01/16/19 14:28 es horse serum Allergy Mild unknown Uncoded 01/16/19 14:28 was kid Home Medications: HOME MEDICATIONS aspirin 81 mg tablet,delayed release 81 mg PO DAILY 05/15/18 [Last Taken Unknown] citalopram 20 mg tablet 20 mg PO DAILY #90 tab 07/05/18 [Last Taken Unknown] Docusate Sodium 100 mg PO TID 01/16/19 [Last Taken Unknown] Losartan Potassium [Cozaar] 25 mg PO DAILY #30 tab 01/17/19 [Last Taken Unknown] Ranitidine HCl [Zantac] 150 mg PO BID #30 tab 01/17/19 [Last Taken Unknown] metFORMIN HCL [Metformin HCl ER] 1,000 mg PO BID #360 tab 01/17/19 [Last Taken Unknown] glimepiride 4 mg tablet 4 mg PO BID #60 tab 02/13/19 [Last Taken Unknown] trazodone 100 mg tablet 200 mg PO HS #60 tab 02/13/19 [Last Taken Unknown] gabapentin 300 mg capsule 300 mg PO TID #90 cap 02/21/19 [Last Taken Unknown] albuterol sulfate 2.5 mg/3 mL (0.083 %) solution for nebulization 2.5 mg INHALATION QID PRN #90 ml 04/19/19 [Last Taken Unknown] compressor, for nebulizer See Dose Instructions .ROUTE .MEDSUPPLY #1 ea 04/19/19 [Last Taken Unknown] nebulizer accessories misc See Dose Instructions .ROUTE .MEDSUPPLY #1 ea 04/19/19 [Last Taken Unknown] Exam - Exam Vital Signs: Vital Signs - Last Taken Temp 37.5 C 04/20/19 21:17 Pulse 109 H 04/20/19 21:17 Resp 20 04/20/19 21:17 BP 120/69 04/20/19 21:17 Pulse Ox 93 04/20/19 21:17 Constitutional: Present: Alert, Oriented x3, Cooperative, Well developed, Looks Older than stated age ENT Exam: Present: hearing grossly normal. Absent: nasal congestion, nasal drainage Eye Exam: bilateral eye: normal inspection Neck: Present: non-tender, supple Respiratory: Present: chest non-tender, no accessory muscle use, decreased breath sounds, wheezing - Bilateral bases, expiration (prolonged). Absent: respiratory distress Cardiovascular/Chest: Present: tachycardia. Absent: systolic murmur, edema Abdomen: Present: Normal bowel sounds, soft, nontender /Rectal: Present: Exam deferred Skin Exam: Present: normal color, warm/dry Appearance: Present: appropriate appearance, appropriate insight Eye contact: Present: cooperative, good eye contact Thoughts: Present: normal thought pattern, normal mood /affect Diagnostic Studies: Abnormal Lab Results 04/20/19 04/20/19 04/20/19 Range/Units 19:10 19:10 19:10 WBC 11.7 H (4.0-10.5) K/mm3 MCH 32.3 H (27-31) pg Immature Gran % (Auto) 1.10 H (0.001-0.429) % Immature Gran # (Auto) 0.13 H (0.000-0.0310) K/mm3 Neutrophils % 76.1 H (42-75.0) % Lymphocytes % 11.1 L (20-51) % Monocytes % 10.9 H (0.0-9) % Neutrophils # 8.9 H (1.3-6.0) K/mm3 Lymphocytes # 1.30 L (1.5-3.5) k/mm3 Monocytes # 1.3 H (0.0-1.0) k/mm3 pO2 (83.0-108.0) mmHg Base Excess (-2.0-3.0) mmol/L ABG O2 Sat (Measured) (94.0-98.0) % Chloride 96 L (97-106) mmol/L Anion Gap 15.0 H (6.8-13.8) mmol/L Random Glucose 262 H (70-110) mg/dL Lactic Acid, Venous 2.7 H* (0.4-2.0) mmol/L Albumin 3.2 L (3.4-5.0) gm/dl 04/20/19 Range/Units 19:30 WBC (4.0-10.5) K/mm3 MCH (27-31) pg Immature Gran % (Auto) (0.001-0.429) % Immature Gran # (Auto) (0.000-0.0310) K/mm3 Neutrophils % (42-75.0) % Lymphocytes % (20-51) % Monocytes % (0.0-9) % Neutrophils # (1.3-6.0) K/mm3 Lymphocytes # (1.5-3.5) k/mm3 Monocytes # (0.0-1.0) k/mm3 pO2 66.4 L (83.0-108.0) mmHg Base Excess -3.1 L (-2.0-3.0) mmol/L ABG O2 Sat (Measured) 93.3 L (94.0-98.0) % Chloride (97-106) mmol/L Anion Gap (6.8-13.8) mmol/L Random Glucose (70-110) mg/dL Lactic Acid, Venous (0.4-2.0) mmol/L Albumin (3.4-5.0) gm/dl Laboratory Results WBC 11.7 K/mm3 (4.0-10.5) H 04/20/19 19:10 RBC 4.80 M/mm3 (4.7-6.0) 04/20/19 19:10 Hgb 15.5 gm/dL (13.5-18.0) 04/20/19 19:10 Hct 45.3 % (42.0-52.0) 04/20/19 19:10 MCV 94.4 fl (78-100) 04/20/19 19:10 MCH 32.3 pg (27-31) H 04/20/19 19:10 MCHC 34.2 g/dl (32-36) 04/20/19 19:10 RDW 12.0 % (11.5-14.0) 04/20/19 19:10 Plt Count 231 K/mm3 (150-450) 04/20/19 19:10 MPV 10.5 fl (8-11.3) 04/20/19 19:10 Immature Gran % (Auto) 1.10 % (0.001-0.429) H 04/20/19 19:10 Immature Gran # (Auto) 0.13 K/mm3 (0.000-0.0310) H 04/20/19 19:10 76.1 % (42-75.0) H 04/20/19 19:10 11.1 % (20-51) L 04/20/19 19:10 10.9 % (0.0-9) H 04/20/19 19:10 0.2 % (0.0-3.0) 04/20/19 19:10 0.6 % (0.0-1.0) 04/20/19 19:10 Nucleated RBC % 0.0 k/mm3 (0-1) 04/20/19 19:10 8.9 K/mm3 (1.3-6.0) H 04/20/19 19:10 1.30 k/mm3 (1.5-3.5) L 04/20/19 19:10 1.3 k/mm3 (0.0-1.0) H 04/20/19 19:10 0.0 k/mm3 (0.0-0.7) 04/20/19 19:10 Absolute Basophils 0.1 k/mm3 (0.0-0.1) 04/20/19 19:10 pCO2 35.0 mmHg (35.0-48.0) 04/20/19 19:30 pO2 66.4 mmHg (83.0-108.0) L 04/20/19 19:30 HCO3 21.0 mmol/L (21.0-28.0) 04/20/19 19:30 Total CO2 22.1 mmol/L (19.0-24.0) 04/20/19 19:30 Base Excess -3.1 mmol/L (-2.0-3.0) L 04/20/19 19:30 ABG pH 7.40 (7.35-7.45) 04/20/19 19:30 ABG O2 Sat (Measured) 93.3 % (94.0-98.0) L 04/20/19 19:30 Sodium 133 mmol/L (132-142) 04/20/19 19:10 136 mmol/L (130-142) 04/20/19 19:10 Potassium 3.9 mmol/L (3.4-4.6) 04/20/19 19:10 Chloride 96 mmol/L (97-106) L 04/20/19 19:10 Carbon Dioxide 25.9 mmol/L (24-32.6) 04/20/19 19:10 15.0 mmol/L (6.8-13.8) H 04/20/19 19:10 BUN 10 mg/dL (6-23) 04/20/19 19:10 1.00 mg/dL (0.4-1.4) 04/20/19 19:10 Est GFR (Non-Af Amer) 81 mL/min (60-130) D 04/20/19 19:10 10.0 (9.0-21.6) 04/20/19 19:10 262 mg/dL (70-110) H 04/20/19 19:10 2.7 mmol/L (0.4-2.0) H* 04/20/19 19:10 Calcium 9.7 mg/dL (7.9-10.9) 04/20/19 19:10 Calcium Adj for Albumin 10.0 mg/dL (8.4-10.2) 04/20/19 19:10 0.8 mg/dL (0.0-1.1) 04/20/19 19:10 AST 22 U/L (0-48) 04/20/19 19:10 ALT 22 U/L (19-67) 04/20/19 19:10 95 U/L (50-170) 04/20/19 19:10 Less than 0.017 ng/mL (0.00-0.10) 04/20/19 19:10 8.1 gm/dL (6.2-8.2) 04/20/19 19:10 3.2 gm/dl (3.4-5.0) L 04/20/19 19:10 Assessment/Plan - Narrative Narrative: 63-year-old with likely COPD exacerbation admitted to the for observation. Significant improvement since Solu-Medrol given. We will continue duo nebs, continue oxygen administration as needed to maintain sats greater than 88%. We will switch to Levaquin tomorrow morning as patient received Rocephin and azithromycin in the ER tonight. Levaquin will also cover any pneumonia that he may have. Tachycardia and tachypnea also improving. Lactic acidosisresolved with fluid resuscitation. Hypertensionwell-controlled, continue current treatment plan. Diabeteshypoglycemic this evening. Restarted on home treatment as well as started sliding scale insulin with low dose protocol. Will check blood sugars before meals at bedtime. No DVT prophylaxis needed at this time as patient will likely be here less than 24 hours. Consistent carb diet started. Nurse will call with any questions or concerns. - Assessment/Plan (1) COPD with exacerbation Problem: Acute (2) Pneumonia Problem: Suspected Qualifiers: Pneumonia type: due to unspecified organism Laterality: left Lung location: lower lobe of lung Qualified Code(s): J18.1 - Lobar pneumonia, unspecified organism (3) Lactic acidosis Problem: Acute (4) Diabetes mellitus Problem: Chronic Qualifiers: Diabetes mellitus type: type 2 Diabetes mellitus care home insulin use: unspecified terminal operator insulin use status Diabetes mellitus complication status: without complication Qualified Code(s): E11.9 - Type 2 diabetes mellitus without complications (5) Essential hypertension Problem: Chronic
[2019-04-20] MEDS ORDERED: traZODone HCL 50 MG TABLET PO SCH (22:30)
[2019-04-20] MEDS ORDERED: traZODone HCL 150 MG TABLET PO SCH (22:30)
[2019-04-20] MEDS ORDERED: ALBUTEROL SULFATE 2.5 MG/0.5 ML VIAL.NEB IH PRN (22:30)
[2019-04-20] MEDS ORDERED: GLIMEPIRIDE 2 MG TABLET ONE (22:39)
[2019-04-20] MEDS: INSULIN REGULAR, HUMAN 100 UNITS/ML VIAL SC SCH (22:46)
[2019-04-20] MEDS: GLIMEPIRIDE 4 MG TABLET PO SCH (22:46)
[2019-04-20] MEDS: FAMOTIDINE 20 MG TABLET PO SCH (22:46)
[2019-04-20] MEDS ORDERED: ACETAMINOPHEN 500 MG TABLET PO PRN (23:02)
[2019-04-21] MEDS ORDERED: BENZONATATE 100 MG CAPSULE PO PRN (00:12)
[2019-04-21 05:44] LABS: Hematocrit 42.8 % (42.0-52.0); Hemoglobin 14.3 gm/dL (13.5-18.0); Mean Cell Volume 94.5 fl (78-100); Mean Corpuscular Hemoglobin 31.6 pg (27-31); Mean Corpuscular Hgb Conc 33.4 g/dl (32-36); Mean Platelet Volume 10.4 fl (8-11.3); Neutrophil # 7.7 K/mm3 (1.3-6.0); Platelet Count 212 K/mm3 (150-450); Red Blood Count 4.53 M/mm3 (4.7-6.0); White Blood Count 9.2 K/mm3 (4.0-10.5)
[2019-04-21 05:53] LABS: Anion Gap 15.3 mmol/L (6.8-13.8); BUN/Creatinine Ratio 11.5 (9.0-21.6); Carbon Dioxide 25.3 mmol/L (24-32.6); Estimated Creat Clear 72.2; Potassium 4.6 mmol/L (3.4-4.6)
[2019-04-21] MEDS: INSULIN REGULAR, HUMAN 100 UNITS/ML VIAL SC SCH ×2 (07:31→11:46)
[2019-04-21] MEDS: FAMOTIDINE 20 MG TABLET PO SCH (08:19)
[2019-04-21] MEDS: GLIMEPIRIDE 4 MG TABLET PO SCH (08:20)
[2019-04-21] MEDS: GABAPENTIN 300 MG CAPSULE PO SCH ×2 (08:20→12:13)
[2019-04-21] MEDS ORDERED: LOSARTAN POTASSIUM 50 MG TABLET PO SCH (09:00)
[2019-04-21] MEDS ORDERED: CITALOPRAM HYDROBROMIDE 20 MG TABLET PO SCH (09:00)
[2019-04-21] MEDS ORDERED: ASPIRIN 81 MG TABLET.DR PO SCH (09:00)
[2019-04-21] MEDS ORDERED: LEVOFLOXACIN 750 MG TABLET PO SCH (11:00)
[2019-04-21] MEDS ORDERED: predniSONE 20 MG TABLET PO ONE (11:49)
--- NOTE | 2019-04-21 12:02 | DS ---
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 Patient was admitted to the floor for COPD exacerbation with possible superimposing left lower lobar pneumonia. He was started on Levaquin and given a dose of Solu-Medrol. On the day of discharge patient was feeling much better, maintaining sats without oxygen which she had previously had to use upon admission he has been afebrile his vital signs been stable since admission. He has a nebulizer at home which he was instructed to continue to use. He will be discharged home with an additional 8 days of Levaquin to be taken daily as well as another 7 days of oral steroids. Start the patient stop smoking though he states he is not ready to do so at this time. Advised him to follow-up with Dr. Barton 1 to 2 weeks from now. Of note his blood sugars were high Likely due to steroid administration. Explained to patient that they will be high over the course the next few days 90 to be very careful with how he ate. He is a [id number]-eobkkuhce diabetic. Procedures Performed: none Results and Findings: Lab Pending Results 04/20/19 19:10: WBC 11.7 H, RBC 4.80, Hgb 15.5, Hct 45.3, MCV 94.4, MCH 32.3 H, MCHC 34.2, RDW 12.0, Plt Count 231, MPV 10.5, Immature Gran % (Auto) 1.10 H, Immature Gran # (Auto) 0.13 H, Neutrophils % 76.1 H, Lymphocytes % 11.1 L, Monocytes % 10.9 H, Eosinophils % 0.2, Basophils % 0.6, Nucleated RBC % 0.0, Neutrophils # 8.9 H, Lymphocytes # 1.30 L, Monocytes # 1.3 H, Eosinophils # 0.0, Absolute Basophils 0.1 04/20/19 19:10: Sodium 133, Plasma Sodium 136, Potassium 3.9, Chloride 96 L, Carbon Dioxide 25.9, Anion Gap 15.0 H, BUN 10, Creatinine 1.00, Est GFR (Non-Af Amer) 81 D, BUN/Creatinine Ratio 10.0, Random Glucose 262 H, Calcium 9.7, Calcium Adj for Albumin 10.0, Total Bilirubin 0.8, AST 22, ALT 22, Alkaline Phosphatase 95, Troponin I Less than 0.017, Total Protein 8.1, Albumin 3.2 L 04/20/19 19:10: Lactic Acid, Venous 2.7 H* 04/20/19 19:30: pCO2 35.0, pO2 66.4 L, HCO3 21.0, Total CO2 22.1, Base Excess - 3.1 L, ABG pH 7.40, ABG O2 Sat (Measured) 93.3 L 04/20/19 22:00: Lactic Acid, Venous 1.7 04/21/19 05:35: WBC 9.2 D, RBC 4.53 L, Hgb 14.3, Hct 42.8, MCV 94.5, MCH 31.6 H, MCHC 33.4, RDW 12.0, Plt Count 212, MPV 10.4, Immature Gran % (Auto) 1.60 H, Immature Gran # (Auto) 0.15 H, Neutrophils % 84.0 H, Lymphocytes % 11.8 L, Monocytes % 2.1, Eosinophils % 0.0, Basophils % 0.5, Nucleated RBC % 0.0, Neutrophils # 7.7 H, Lymphocytes # 1.09 L, Monocytes # 0.2, Eosinophils # 0.0, Absolute Basophils 0.1 04/21/19 05:35: Sodium 134, Plasma Sodium 137, Potassium 4.6, Chloride 98, Carbon Dioxide 25.3, Anion Gap 15.3 H, BUN 12, Creatinine 1.04, Est GFR (Non-Af Amer) 77, BUN/Creatinine Ratio 11.5, Random Glucose 300 H, Calcium 9.0 Discharge Location: Home Disposition: Home self-care Condition: Stable Discharge Activity: Activity as tolerated Discharge Diet: Consistent carbs Referrals: Louisa Dutton MD [Primary Care Provider] - Two Weeks Additional Patient Instructions (free text): -Please make TCM appointment unless [facility] discharge, or if following up with outside provider. Thank you! [facility] [address]. Prescriptions (Any new or edited meds): Levofloxacin [Levaquin] 750 mg PO DAILY@1100 #8 tab predniSONE [Prednisone] 2 tab PO DAILY #14 tab Complete Home Medications List: Complete Home Medication List: aspirin 81 mg tablet,delayed release 81 mg PO DAILY 05/15/18 citalopram 20 mg tablet 20 mg PO DAILY #90 tab 07/05/18 Docusate Sodium 100 mg PO TID 01/16/19 Losartan Potassium [Cozaar] 25 mg PO DAILY #30 tab 01/17/19 Ranitidine HCl [Zantac] 150 mg PO BID #30 tab 01/17/19 metFORMIN HCL [Metformin HCl ER] 1,000 mg PO BID #360 tab 01/17/19 glimepiride 4 mg tablet 4 mg PO BID #60 tab 02/13/19 trazodone 100 mg tablet 200 mg PO HS #60 tab 02/13/19 gabapentin 300 mg capsule 300 mg PO TID #90 cap 02/21/19 albuterol sulfate 2.5 mg/3 mL (0.083 %) solution for nebulization 2.5 mg INHALATION QID PRN #90 ml 04/19/19 compressor, for nebulizer See Dose Instructions .ROUTE .MEDSUPPLY #1 ea 04/19/19 nebulizer accessories misc See Dose Instructions .ROUTE .MEDSUPPLY #1 ea 04/19/19 Levofloxacin [Levaquin] 750 mg PO DAILY@1100 #8 tab 04/21/19 predniSONE [Prednisone] 2 tab PO DAILY #14 tab 04/21/19
[2019-04-21 14:34] VITALS: BP 101/50
== END 2019-04-21 14:53 | disposition home or self-care (01) ==
LOC: ER 18:35 → MS 20:17 → INTOOBSV 20:17 → MS 20:20
PROVIDERS: ADMIT Family Medicine; ATTEND Internal Medicine
CPT/HCPCS: 36415; 36600; 71020; 71046; 80048; 80053; 82803; 83605; 84484; 85025; 87040; 93005; 94640; 94664; 94760; 96365; 96366; 96372; 96375; 99285; G0378